=== PATIENT | male | born 1990 | race Caucasian/White ===

== ENCOUNTER 2023-01-03 14:58 | Emergency (ER) | payer OTHER ==
[~2023-01-03] VITALS: Ht 175.3 cm; Wt 91.0 kg
[2023-01-03 15:08] VITALS: BP 124/86
== END 2023-01-03 17:23 | disposition home or self-care (01) ==
LOC: ER 14:58
DX: F41.9 Anxiety disorder, unspecified (principal); R44.0 Auditory hallucinations
CPT/HCPCS: 99281